=== PATIENT | male | born 1980 | race Caucasian/White ===

== ENCOUNTER 2018-01-27 06:08 | Emergency (ER) | payer SELFPAY ==
--- NOTE | 2018-01-27 06:24 | ED ---
Throat Pain/Nasal Congestion - HPI Summary HPI Summary: Pt. is a 37 y.o male who presents to the ER for dental pain x several days. Pt. states he has had issues with tooth in the past. Pt. denies fever, N/V, facial swelling. Hx of sarcoidosis. Pain is worse with eating and touching affected tooth. Pt. states he has not been able to sleep the last two night secondary to pain. Symptoms are mild in severity. Pt states he recently started a new job and does not have insurance yet. - History of Current Complaint Chief Complaint: EDDentalPain Time Seen by Provider: 01/27/18 06:15 Hx Obtained From: Patient - Allergies/Home Medications Allergies/Adverse Reactions: Allergies Allergy/AdvReac Type Severity Reaction Status Date / Time cyclobenzaprine Allergy Headache Verified 01/27/18 06:14 [From Flexeril] NSAIDS (Non-Steroidal Allergy Unknown Verified 01/27/18 06:14 Anti-Inflamma Reaction Details PMH/Surg Hx/FS Hx/Imm Hx Previously Healthy: Yes Infectious Disease History: No Infectious Disease History: Denies: Traveled Outside the [place] in Last 30 Days - Social History Occupation: Employed Full-time Lives: With Family Alcohol Use: None Substance Use Type: Reports: Marijuana Smoking Status (MU): Former Smoker Review of Systems Constitutional: Negative Negative: Fever, Chills Positive: Dental Pain Gastrointestinal: Negative Negative: Vomiting, Nausea All Other Systems Reviewed And Are Negative: Yes Physical Exam Triage Information Reviewed: Yes Vital Signs On Initial Exam: Initial Vitals Temp Pulse Resp BP Pulse Ox 97.6 F 57 16 142/96 98 01/27/18 06:10 01/27/18 06:10 01/27/18 06:10 01/27/18 06:10 01/27/18 06:10 Vital Signs Reviewed: Yes Appearance: Positive: Pain Distress - Pt. sitting up on bed, appears in pain but nontoxic. S.O. present. Skin: Positive: Warm, Dry Head/Face: Positive: Normal Head/Face Inspection Eyes: Positive: Normal, EOMI ENT: Positive: Other - Pain to right lateral incisor. Surrounding gums are erythematous and edematous. No drainable abscess. No facial swelling. No submandibular edema or swelling under tongue. No tissue necrosis. Neck: Positive: Supple, Nontender, No Lymphadenopathy Neurological: Positive: Normal, CN Intact II-III Psychiatric: Positive: Affect/Mood Appropriate Procedures - Procedure Summary Procedure Summary: Dental block: 1cc of bupivocaine with epi was used for a supraperiosteal block. Pt. tolerated well. Diagnostics - Vital Signs Vital Signs Temp Pulse Resp BP Pulse Ox 01/27/18 06:10 97.6 F 57 16 142/96 98 - Laboratory Lab Statement: Any lab studies that have been ordered have been reviewed, and results considered in the medical decision making process. EENT Course/Dx - Course Course Of Treatment: Pt. presenting for dental pain. He is afebrile and well appearing. No drainable abscess on exam. Pt. requesting nerve block which was performed by myself as noted above. Will start on pen VK. Small rx for lortab rx , RF MANAGER reviewed and no redflags noted. Advised pt. to f.u in the [facility] and with a dentist. To return to ER for fever, increased pain , facial swelling, vomiting, or if concerned. Pt. understands and agrees with plan. - Differential Diagnoses Differential Diagnoses: Dental Abscess, Dental Caries, Periodontic Abscess, Periodontic Disease - Diagnoses Provider Diagnoses: Dental abscess Discharge - Sign-Out/Discharge Documenting (check all that apply): Patient Departure - Discharge Plan Condition: Good Disposition: HOME Prescriptions: Hydrocodone/Acetaminophen [Hydrocodone/Acetaminophen 5-325 mg] 1 tab PO Q6H #12 tab MDD 4tablets Penicillin VK 500 MG TAB(NF) [Penicillin VK 500 mg Tab] 500 mg PO QID #40 tab Patient Education Materials: Dental Abscess (ED) Forms: *Work Release Referrals: [facility] [Outside] Additional Instructions: Schedule an appointment with a dentist Medication as directed Return to ER if symptoms change or worsen - Billing Disposition and Condition Condition: GOOD Disposition: Home
[2018-01-27] MEDS ORDERED: Lidocaine 1%* 5 ML VIAL INJ ONE (06:36)
[2018-01-27] MEDS ORDERED: Bupivacaine 0.5% W/EPI SDV* 30 ML VIAL ONE (06:42)
[2018-01-27] MEDS ORDERED: Bupivacaine 0.5% W/EPI SDV* 30 ML VIAL INJ ONE (06:42)
[2018-01-27 07:34] VITALS: BP 132/88
== END 2018-01-27 07:33 | disposition home or self-care (01) ==
LOC: ED 06:08
DX: K04.7 Periapical abscess without sinus (principal); Z88.6 Allergy status to analgesic agent; Z88.8 Allergy status to other drugs, medicaments and biological substances; Z87.891 Personal history of nicotine dependence
CPT/HCPCS: 99282